=== PATIENT | male | born 1935 | race Caucasian/White ===

== ENCOUNTER 2018-06-01 22:24 | Inpatient (IN) | payer MEDICARE, OTHER, MEDICAID ==
[2018-06-01 22:51] LABS: ADD MAN DIFF? NO
[2018-06-01 22:53] LABS: BASOPHIL # 0.1 10^3/ul (0.0-0.1); BASOPHILS % 0.6 % (0.0-2.0); EOSINOPHILS # 0.6 10^3/ul (0.0-0.5); EOSINOPHILS % 4.2 % (0.0-7.0); HEMATOCRIT 33.8 % (42.0-52.0); HEMOGLOBIN 10.4 g/dl (14.0-18.0); LYMPHOCYTES # 4.3 10^3/ul (0.8-2.9); LYMPHOCYTES % 31.3 % (15.0-51.0); MEAN CORPUSCULAR HEMOGLOBIN 27.2 pg (29.0-33.0); MEAN CORPUSCULAR HGB CONC 30.8 g/dl (32.0-37.0); MEAN CORPUSCULAR VOLUME 88.5 fl (82.0-101.0); MEAN PLATELET VOLUME 10.3 fl (7.4-10.4); MONOCYTE # 0.9 10^3/ul (0.3-0.9); MONOCYTES % 6.2 % (0.0-11.0); NEUTROPHIL # 7.6 10^3/ul (1.6-7.5); NEUTROPHILS % 55.1 % (39.0-77.0); PLATELET COUNT 353 10^3/UL (140-415); RED BLOOD COUNT 3.82 10^6/ul (4.70-6.10); RED CELL DISTRIBUTION WIDTH 14.3 % (11.5-14.5)
[2018-06-01 22:53] LABS: WHITE BLOOD COUNT 13.7 10^3/ul (4.8-10.8)
[2018-06-01 23:17] LABS: ANION GAP 17 (8-16); BLOOD UREA NITROGEN 74 mg/dl (7-20); CALCIUM 9.4 mg/dl (8.4-10.2); CARBON DIOXIDE 20 mmol/L (21-31); CHLORIDE 108 mmol/L (97-110); GLUCOSE 150 mg/dl (70-220); POTASSIUM 5.3 mmol/L (3.5-5.1); SODIUM 140 mmol/L (135-144)
[2018-06-01 23:29] LABS: B-TYPE NATRIURETIC PEPTIDE 4110 PG/ML (0-450); TROPONIN-I < 0.010 ng/ml (0.000-0.120)
[2018-06-01] MEDS: ASPIRIN 81 MG TAB PO (23:50)
[2018-06-02] MEDS: FUROSEMIDE 40 MG INJ IV ×2 (02:00→09:04)
[2018-06-02 03:32] LABS: ADD UMIC YES; UR ASCORBIC ACID NEGATIVE (NEGATIVE); UR BACTERIA MODERATE /HPF (NONE SEEN); UR BILIRUBIN (Dip) NEGATIVE (NEGATIVE); UR BLOOD (Dip) 2+ mg/dL (NEGATIVE); UR CLARITY CLOUDY (CLEAR); UR COLOR YELLOW (YELLOW); UR GLUCOSE (Dip) NEGATIVE (NEGATIVE); UR KETONES (Dip) NEGATIVE (NEGATIVE); UR LEUKOCYTE ESTERASE (Dip) 3+ Leu/ul (NEGATIVE); UR NITRITE (Dip) NEGATIVE (NEGATIVE); UR RBC 16 /HPF (0-5); UR SPECIFIC GRAVITY (Dip) 1.012 (1.003-1.030); UR SQUAMOUS EPITHELIAL CELL FEW /HPF (FEW); UR TOTAL PROTEIN (Dip) 2+ mg/dl (NEGATIVE); UR URIC ACID CRYSTAL FEW /HPF (NONE SEEN); UR UROBILINOGEN (Dip) NEGATIVE (NEGATIVE); UR WBC 107 /HPF (0-5)
[2018-06-02] MEDS ORDERED: morphine 2 MG INJ IV (04:00)
[2018-06-02] MEDS ORDERED: NACL 0.9% 3 ML SYG IV (04:00)
[2018-06-02] MEDS: FAMOTIDINE 20 MG INJ IV (09:04)
[2018-06-02] MEDS: ENOXAPARIN 30 MG/0.3 ML SYG SC (09:11)
[2018-06-02 10:10] LABS: CREATINE KINASE 72 IU/L (23-200)
[2018-06-02 10:23] LABS: CK INDEX 3.8; CK-MB 2.71 ng/ml (0.0-2.4)
[2018-06-02] MEDS ORDERED: ACETAMINOPHEN 325 MG TAB PO (12:30)
[2018-06-02] MEDS ORDERED: NITROGLYCERIN (SL) 0.4 MG TAB SL (12:30)
[2018-06-02] MEDS ORDERED: ALBUTEROL 0.083% (NEB) 2.5 MG/3 ML AMP NEB (12:30)
[2018-06-02] MEDS ORDERED: GLUCOSE GEL 15 GRAM TUBE PO ×2 (13:00)
[2018-06-02] MEDS ORDERED: GLUCOSE GEL 15 GRAM TUBE BUCCAL (13:00)
[2018-06-02] MEDS ORDERED: GLUCAGON 1 MG INJ IM (13:00)
[2018-06-02] MEDS ORDERED: DEXTROSE 50% 50 ML SYRINGE IV ×2 (13:00)
[2018-06-02] MEDS: MULTIVIT/CA CARB/B CMPLX/FA TAB PO (14:23)
[2018-06-02] MEDS: SOD CHLORIDE 0.45% 1,000 ML IV (14:23)
[2018-06-02] MEDS: NA POLYST SULFON 15 GM/60 ML BTL PO (14:24)
[2018-06-02] MEDS: ASPIRIN (EC) 325 MG TAB PO (14:24)
[2018-06-02] MEDS: BISACODYL 10 MG SUPP PR (14:25)
[2018-06-02] MEDS: CEFTRIAXONE 1 GM/50 ML (PMX) 50 ML IVPB (14:25)
[2018-06-02] MEDS: METOPROLOL 25 MG TAB PO ×2 (14:25→20:40)
[2018-06-02 15:28] LABS: CREATINE KINASE 52 IU/L (23-200)
[2018-06-02 15:36] LABS: CK INDEX 4.6; CK-MB 2.39 ng/ml (0.0-2.4)
[2018-06-02 15:38] LABS: TROPONIN-I 0.914 ng/ml (0.000-0.120)
[2018-06-02] MEDS ORDERED: PENDING SANTYL ORDER FOR WOUND CARE XX (16:00)
[2018-06-02] MEDS: INSULIN ASPART [NOVOLOG] 3 ML PEN SC ×2 (17:41→20:40)
[2018-06-02] MEDS: PROMETHAZINE/DM (CUP) PO (20:39)
[2018-06-02] MEDS: DOCUSATE SODIUM 100 MG CAP PO (20:39)
[2018-06-02] MEDS: TAMSULOSIN (SR) 0.4 MG CAP PO (20:39)
[2018-06-02] MEDS: ATORVASTATIN 40 MG TAB PO (20:40)
[2018-06-02] MEDS: FERROUS SULFATE (EC) 325 MG TAB PO (20:40)
[2018-06-03] MEDS: PROMETHAZINE/DM (CUP) PO ×2 (02:18→21:12)
[2018-06-03] MEDS: PANTOPRAZOLE (EC) 40 MG TAB PO (05:44)
[2018-06-03] MEDS: ACETAMINOPHEN 325 MG TAB PO ×2 (05:45→21:12)
[2018-06-03] MEDS: INSULIN ASPART [NOVOLOG] 3 ML PEN SC ×4 (08:00→21:00)
[2018-06-03] MEDS: ENOXAPARIN 30 MG/0.3 ML SYG SC (08:16)
[2018-06-03] MEDS: FUROSEMIDE 40 MG INJ IV (08:16)
[2018-06-03] MEDS: CLOPIDOGREL 75 MG TAB PO (08:17)
[2018-06-03] MEDS: DOCUSATE SODIUM 100 MG CAP PO ×2 (08:17→21:13)
[2018-06-03] MEDS: ASPIRIN (EC) 81 MG TAB PO (08:17)
[2018-06-03] MEDS: FERROUS SULFATE (EC) 325 MG TAB PO ×2 (08:17→21:14)
[2018-06-03] MEDS: ISOSORBIDE MONONITRATE(SR)30 MG TAB PO (08:17)
[2018-06-03] MEDS: FAMOTIDINE 20 MG INJ IV (08:18)
[2018-06-03] MEDS: LINAGLIPTIN 5 MG TABLET PO (08:18)
[2018-06-03 08:44] LABS: ADD MAN DIFF? NO
[2018-06-03 08:59] LABS: BASOPHIL # 0.1 10^3/ul (0.0-0.1); BASOPHILS % 0.6 % (0.0-2.0); EOSINOPHILS # 0.7 10^3/ul (0.0-0.5); HEMATOCRIT 30.7 % (42.0-52.0); HEMOGLOBIN 9.3 g/dl (14.0-18.0); LYMPHOCYTES # 3.1 10^3/ul (0.8-2.9); LYMPHOCYTES % 21.3 % (15.0-51.0); MEAN CORPUSCULAR HEMOGLOBIN 26.8 pg (29.0-33.0); MEAN CORPUSCULAR HGB CONC 30.3 g/dl (32.0-37.0); MEAN CORPUSCULAR VOLUME 88.5 fl (82.0-101.0); MEAN PLATELET VOLUME 10.4 fl (7.4-10.4); MONOCYTE # 0.9 10^3/ul (0.3-0.9); MONOCYTES % 6.4 % (0.0-11.0); NEUTROPHIL # 9.4 10^3/ul (1.6-7.5); NEUTROPHILS % 65.2 % (39.0-77.0); PLATELET COUNT 331 10^3/UL (140-415); RED BLOOD COUNT 3.47 10^6/ul (4.70-6.10); RED CELL DISTRIBUTION WIDTH 14.5 % (11.5-14.5)
[2018-06-03 08:59] LABS: WHITE BLOOD COUNT 14.5 10^3/ul (4.8-10.8)
[2018-06-03 09:17] LABS: CHOLESTEROL 135 mg/dl (100-200)
[2018-06-03 09:17] LABS: CHOL/HDL RATIO 5.6 RATIO; HDL CHOLESTEROL 24 mg/dl (31-75); LDL CHOLESTEROL,CALCULATED 82 mg/dl; TRIGLYCERIDES 146 mg/dl (0-149)
[2018-06-03] MEDS: POLYETHYLENE GLYCOL 17 GM PACKET PO (09:29)
[2018-06-03] MEDS: METOPROLOL 25 MG TAB PO ×2 (09:29→21:13)
[2018-06-03 09:33] LABS: FREE T4 (FREE THYROXINE) 1.48 ng/dl (0.85-1.93)
[2018-06-03 09:34] LABS: ALANINE AMINOTRANSFERASE 43 IU/L (13-69); ALBUMIN 3.2 g/dl (3.3-4.9); ALBUMIN/GLOBULIN RATIO 0.78; ALKALINE PHOSPHATASE 134 IU/L (42-121); ANION GAP 16 (8-16); ASPARTATE AMINO TRANSFERASE 33 IU/L (15-46); BILIRUBIN,INDIRECT 0.1 mg/dl (0-1.1); BILIRUBIN,TOTAL 0.1 mg/dl (0.2-1.3); BLOOD UREA NITROGEN 74 mg/dl (7-20); CALCIUM 8.6 mg/dl (8.4-10.2); CARBON DIOXIDE 22 mmol/L (21-31); CHLORIDE 107 mmol/L (97-110); CREATININE 2.82 mg/dl (0.61-1.24); GLUCOSE 126 mg/dl (70-220); POTASSIUM 5.1 mmol/L (3.5-5.1); SODIUM 140 mmol/L (135-144); TOTAL PROTEIN 7.3 g/dl (6.1-8.1)
[2018-06-03 09:35] LABS: URIC ACID 10.5 mg/dl (3.1-7.9)
[2018-06-03 09:35] LABS: CREATINE KINASE 32 IU/L (23-200)
[2018-06-03 09:37] LABS: B-TYPE NATRIURETIC PEPTIDE 5790 PG/ML (0-450)
[2018-06-03 09:39] LABS: CK INDEX 2.9; CK-MB 0.92 ng/ml (0.0-2.4)
[2018-06-03 09:42] LABS: TROPONIN-I 0.324 ng/ml (0.000-0.120)
[2018-06-03 09:42] LABS: HEMOGLOBIN A1C 6.6 % (0-5.9)
[2018-06-03] MEDS: BISACODYL 10 MG SUPP PR (12:30)
[2018-06-03] MEDS: SOD CHLORIDE 0.45% 1,000 ML IV (12:39)
[2018-06-03] MEDS: CEFTRIAXONE 1 GM/50 ML (PMX) 50 ML IVPB (14:16)
[2018-06-03] MEDS: LEVOFLOXACIN 500MG/D5W (PMX) 100 ML IVPB (18:23)
[2018-06-03 19:59] LABS: SODIUM,URINE RANDOM 68 mmol/L (30-90)
[2018-06-03 20:00] LABS: PROTEIN/CREAT RATIO 2.36 RATIO
[2018-06-03] MEDS: TAMSULOSIN (SR) 0.4 MG CAP PO (21:13)
[2018-06-03] MEDS: ATORVASTATIN 40 MG TAB PO (21:13)
[2018-06-03] MEDS: NYSTATIN 30 GM POWDER BTL TOP (21:21)
[2018-06-04] MEDS: PANTOPRAZOLE (EC) 40 MG TAB PO (06:40)
[2018-06-04 07:46] LABS: ADD MAN DIFF? NO
[2018-06-04 07:51] LABS: WHITE BLOOD COUNT 10.6 10^3/ul (4.8-10.8)
[2018-06-04 07:51] LABS: BASOPHIL # 0.1 10^3/ul (0.0-0.1); BASOPHILS % 0.5 % (0.0-2.0); EOSINOPHILS # 0.5 10^3/ul (0.0-0.5); EOSINOPHILS % 5.1 % (0.0-7.0); HEMATOCRIT 29.6 % (42.0-52.0); LYMPHOCYTES # 2.6 10^3/ul (0.8-2.9); LYMPHOCYTES % 24.2 % (15.0-51.0); MEAN CORPUSCULAR HGB CONC 30.4 g/dl (32.0-37.0); MEAN CORPUSCULAR VOLUME 88.9 fl (82.0-101.0); MEAN PLATELET VOLUME 10.3 fl (7.4-10.4); MONOCYTE # 0.9 10^3/ul (0.3-0.9); MONOCYTES % 8.1 % (0.0-11.0); NEUTROPHIL # 6.5 10^3/ul (1.6-7.5); NEUTROPHILS % 60.9 % (39.0-77.0); PLATELET COUNT 316 10^3/UL (140-415); RED BLOOD COUNT 3.33 10^6/ul (4.70-6.10); RED CELL DISTRIBUTION WIDTH 14.5 % (11.5-14.5)
[2018-06-04] MEDS: INSULIN ASPART [NOVOLOG] 3 ML PEN SC ×4 (08:00→20:26)
[2018-06-04 08:12] LABS: ANION GAP 13 (8-16); BLOOD UREA NITROGEN 72 mg/dl (7-20); CALCIUM 8.9 mg/dl (8.4-10.2); CARBON DIOXIDE 24 mmol/L (21-31); CHLORIDE 107 mmol/L (97-110); CREATININE 2.72 mg/dl (0.61-1.24); GLUCOSE 126 mg/dl (70-220); POTASSIUM 4.8 mmol/L (3.5-5.1); SODIUM 139 mmol/L (135-144)
[2018-06-04] MEDS: FUROSEMIDE 40 MG INJ IV (08:44)
[2018-06-04] MEDS: DOCUSATE SODIUM 100 MG CAP PO ×2 (08:44→20:25)
[2018-06-04] MEDS: FERROUS SULFATE (EC) 325 MG TAB PO ×2 (08:44→20:25)
[2018-06-04] MEDS: ASPIRIN (EC) 81 MG TAB PO (08:44)
[2018-06-04] MEDS: ISOSORBIDE MONONITRATE(SR)30 MG TAB PO (08:44)
[2018-06-04] MEDS: FAMOTIDINE 20 MG INJ IV (08:44)
[2018-06-04] MEDS: LINAGLIPTIN 5 MG TABLET PO (08:45)
[2018-06-04] MEDS: POLYETHYLENE GLYCOL 17 GM PACKET PO (08:45)
[2018-06-04] MEDS: METOPROLOL 25 MG TAB PO ×2 (08:45→20:26)
[2018-06-04] MEDS: CLOPIDOGREL 75 MG TAB PO (08:45)
[2018-06-04] MEDS: NYSTATIN 30 GM POWDER BTL TOP ×2 (08:49→20:27)
[2018-06-04] MEDS: ENOXAPARIN 30 MG/0.3 ML SYG SC (08:49)
[2018-06-04] MEDS: ACETAMINOPHEN 325 MG TAB PO (10:20)
[2018-06-04] MEDS: SOD CHLORIDE 0.45% 1,000 ML IV (12:12)
[2018-06-04] MEDS: BISACODYL 10 MG SUPP PR (12:30)
[2018-06-04] MEDS: HYDROCODONE/APAP (5/325) TAB PO ×2 (13:05→21:23)
[2018-06-04] MEDS: CEFTRIAXONE 1 GM/50 ML (PMX) 50 ML IVPB (13:05)
[2018-06-04] MEDS: TAMSULOSIN (SR) 0.4 MG CAP PO (20:25)
[2018-06-04] MEDS: PROMETHAZINE/DM (CUP) PO (20:25)
[2018-06-04] MEDS: ATORVASTATIN 40 MG TAB PO (20:25)
[2018-06-05] MEDS: PANTOPRAZOLE (EC) 40 MG TAB PO (05:59)
[2018-06-05 06:30] LABS: ADD MAN DIFF? NO
[2018-06-05 06:32] LABS: WHITE BLOOD COUNT 11.8 10^3/ul (4.8-10.8)
[2018-06-05 06:32] LABS: BASOPHILS % 0.3 % (0.0-2.0); EOSINOPHILS # 0.5 10^3/ul (0.0-0.5); EOSINOPHILS % 3.8 % (0.0-7.0); HEMATOCRIT 31.6 % (42.0-52.0); HEMOGLOBIN 9.7 g/dl (14.0-18.0); LYMPHOCYTES # 3.1 10^3/ul (0.8-2.9); LYMPHOCYTES % 26.5 % (15.0-51.0); MEAN CORPUSCULAR HEMOGLOBIN 27.4 pg (29.0-33.0); MEAN CORPUSCULAR HGB CONC 30.7 g/dl (32.0-37.0); MEAN CORPUSCULAR VOLUME 89.3 fl (82.0-101.0); MEAN PLATELET VOLUME 10.2 fl (7.4-10.4); MONOCYTE # 0.9 10^3/ul (0.3-0.9); MONOCYTES % 7.7 % (0.0-11.0); NEUTROPHIL # 7.1 10^3/ul (1.6-7.5); NEUTROPHILS % 60.8 % (39.0-77.0); PLATELET COUNT 341 10^3/UL (140-415); RED BLOOD COUNT 3.54 10^6/ul (4.70-6.10); RED CELL DISTRIBUTION WIDTH 14.6 % (11.5-14.5)
[2018-06-05 06:59] LABS: ANION GAP 15 (8-16); BLOOD UREA NITROGEN 71 mg/dl (7-20); CALCIUM 9.1 mg/dl (8.4-10.2); CARBON DIOXIDE 24 mmol/L (21-31); CHLORIDE 110 mmol/L (97-110); CREATININE 2.92 mg/dl (0.61-1.24); GLUCOSE 130 mg/dl (70-220); POTASSIUM 5.5 mmol/L (3.5-5.1); SODIUM 143 mmol/L (135-144)
[2018-06-05] MEDS: INSULIN ASPART [NOVOLOG] 3 ML PEN SC ×4 (08:00→20:36)
[2018-06-05] MEDS: FAMOTIDINE 20 MG INJ IV (08:37)
[2018-06-05] MEDS: FUROSEMIDE 40 MG INJ IV (08:37)
[2018-06-05] MEDS: ISOSORBIDE MONONITRATE(SR)30 MG TAB PO (08:38)
[2018-06-05] MEDS: ASPIRIN (EC) 81 MG TAB PO (08:38)
[2018-06-05] MEDS: FERROUS SULFATE (EC) 325 MG TAB PO ×2 (08:38→20:25)
[2018-06-05] MEDS: CLOPIDOGREL 75 MG TAB PO (08:38)
[2018-06-05] MEDS: DOCUSATE SODIUM 100 MG CAP PO ×2 (08:38→20:25)
[2018-06-05] MEDS: POLYETHYLENE GLYCOL 17 GM PACKET PO (08:39)
[2018-06-05] MEDS: LINAGLIPTIN 5 MG TABLET PO (08:39)
[2018-06-05] MEDS: METOPROLOL 25 MG TAB PO ×2 (08:39→20:27)
[2018-06-05] MEDS: ENOXAPARIN 30 MG/0.3 ML SYG SC (08:51)
[2018-06-05] MEDS: NYSTATIN 30 GM POWDER BTL TOP ×2 (08:53→20:36)
[2018-06-05] MEDS: PROMETHAZINE/DM (CUP) PO ×2 (10:20→20:25)
[2018-06-05] MEDS: BISACODYL 10 MG SUPP PR (12:30)
[2018-06-05] MEDS: SOD CHLORIDE 0.45% 1,000 ML IV (12:35)
[2018-06-05] MEDS: CEFTRIAXONE 1 GM/50 ML (PMX) 50 ML IVPB (13:35)
[2018-06-05] MEDS: NA POLYST SULFON 15 GM/60 ML BTL PO (13:35)
[2018-06-05] MEDS: predniSONE 20 MG TAB PO (14:37)
[2018-06-05] MEDS: ALBUMIN HUMAN 25% 100 ML IV (15:22)
[2018-06-05] MEDS: LEVOFLOXACIN 250 MG TAB PO (18:03)
[2018-06-05] MEDS: TAMSULOSIN (SR) 0.4 MG CAP PO (20:25)
[2018-06-05] MEDS: ATORVASTATIN 40 MG TAB PO (20:25)
[2018-06-05] MEDS: ZOLPIDEM 5 MG TAB PO (23:36)
[2018-06-05] MEDS: HYDROCODONE/APAP (5/325) TAB PO (23:36)
[2018-06-06] MEDS: LEVOFLOXACIN 250 MG TAB PO (05:19)
[2018-06-06] MEDS: PANTOPRAZOLE (EC) 40 MG TAB PO (05:19)
[2018-06-06 07:38] LABS: ADD MAN DIFF? NO
[2018-06-06 07:49] LABS: BASOPHILS % 0.3 % (0.0-2.0); EOSINOPHILS % 0.4 % (0.0-7.0); HEMATOCRIT 27.9 % (42.0-52.0); HEMOGLOBIN 8.5 g/dl (14.0-18.0); LYMPHOCYTES # 2.3 10^3/ul (0.8-2.9); LYMPHOCYTES % 23.1 % (15.0-51.0); MEAN CORPUSCULAR HEMOGLOBIN 27.2 pg (29.0-33.0); MEAN CORPUSCULAR HGB CONC 30.5 g/dl (32.0-37.0); MEAN CORPUSCULAR VOLUME 89.4 fl (82.0-101.0); MEAN PLATELET VOLUME 10.4 fl (7.4-10.4); MONOCYTE # 0.5 10^3/ul (0.3-0.9); MONOCYTES % 5.2 % (0.0-11.0); NEUTROPHILS % 70.1 % (39.0-77.0); PLATELET COUNT 311 10^3/UL (140-415); RED BLOOD COUNT 3.12 10^6/ul (4.70-6.10); RED CELL DISTRIBUTION WIDTH 14.6 % (11.5-14.5)
[2018-06-06] MEDS: INSULIN ASPART [NOVOLOG] 3 ML PEN SC ×4 (08:00→21:08)
[2018-06-06 08:13] LABS: ANION GAP 15 (8-16); BLOOD UREA NITROGEN 68 mg/dl (7-20); CALCIUM 8.8 mg/dl (8.4-10.2); CARBON DIOXIDE 25 mmol/L (21-31); CHLORIDE 107 mmol/L (97-110); CREATININE 2.82 mg/dl (0.61-1.24); GLUCOSE 133 mg/dl (70-220); POTASSIUM 5.5 mmol/L (3.5-5.1); SODIUM 141 mmol/L (135-144)
[2018-06-06] MEDS: POLYETHYLENE GLYCOL 17 GM PACKET PO (08:20)
[2018-06-06] MEDS: predniSONE 20 MG TAB PO (08:20)
[2018-06-06] MEDS: METOPROLOL 25 MG TAB PO ×2 (08:21→20:23)
[2018-06-06] MEDS: ISOSORBIDE MONONITRATE(SR)30 MG TAB PO (08:21)
[2018-06-06] MEDS: CLOPIDOGREL 75 MG TAB PO (08:21)
[2018-06-06] MEDS: DOCUSATE SODIUM 100 MG CAP PO ×2 (08:21→20:23)
[2018-06-06] MEDS: ERGOCALCIFEROL 50,000 UNIT CAP PO (08:21)
[2018-06-06] MEDS: LINAGLIPTIN 5 MG TABLET PO (08:21)
[2018-06-06] MEDS: ASPIRIN (EC) 81 MG TAB PO (08:21)
[2018-06-06] MEDS: FUROSEMIDE 20 MG INJ IV (08:22)
[2018-06-06] MEDS: FAMOTIDINE 20 MG INJ IV (08:24)
[2018-06-06] MEDS: ENOXAPARIN 30 MG/0.3 ML SYG SC (08:24)
[2018-06-06] MEDS: NYSTATIN 30 GM POWDER BTL TOP ×2 (08:25→21:10)
[2018-06-06] MEDS: FERROUS SULFATE (EC) 325 MG TAB PO ×2 (08:28→20:23)
[2018-06-06] MEDS: HYDROCODONE/APAP (5/325) TAB PO (09:42)
[2018-06-06] MEDS: SOD CHLORIDE 0.45% 1,000 ML IV (12:30)
[2018-06-06] MEDS: BISACODYL 10 MG SUPP PR (13:06)
[2018-06-06] MEDS: NA POLYST SULFON 15 GM/60 ML BTL PO (14:11)
[2018-06-06] MEDS: ATORVASTATIN 40 MG TAB PO (20:23)
[2018-06-06] MEDS: TAMSULOSIN (SR) 0.4 MG CAP PO (20:23)
[2018-06-06] MEDS: ONDANSETRON 4 MG INJ IV (21:55)
[2018-06-06] MEDS: ZOLPIDEM 5 MG TAB PO (21:56)
[2018-06-07] MEDS: PROMETHAZINE/DM (CUP) PO ×4 (03:56→22:15)
[2018-06-07] MEDS: SOD CHLORIDE 0.45% 1,000 ML IV (03:57)
[2018-06-07] MEDS: ONDANSETRON 4 MG INJ IV ×2 (04:56→16:02)
[2018-06-07] MEDS: PANTOPRAZOLE (EC) 40 MG TAB PO (05:07)
[2018-06-07] MEDS: LEVOFLOXACIN 250 MG TAB PO (05:10)
[2018-06-07] MEDS: ACETAMINOPHEN 325 MG TAB PO (05:15)
[2018-06-07 07:45] LABS: ADD MAN DIFF? NO
[2018-06-07 07:52] LABS: BASOPHIL # 0.1 10^3/ul (0.0-0.1); BASOPHILS % 0.5 % (0.0-2.0); EOSINOPHILS # 0.1 10^3/ul (0.0-0.5); EOSINOPHILS % 0.6 % (0.0-7.0); HEMATOCRIT 29.9 % (42.0-52.0); HEMOGLOBIN 9.4 g/dl (14.0-18.0); LYMPHOCYTES # 2.8 10^3/ul (0.8-2.9); LYMPHOCYTES % 20.9 % (15.0-51.0); MEAN CORPUSCULAR HGB CONC 31.4 g/dl (32.0-37.0); MEAN PLATELET VOLUME 10.3 fl (7.4-10.4); MONOCYTE # 0.8 10^3/ul (0.3-0.9); MONOCYTES % 6.3 % (0.0-11.0); NEUTROPHIL # 9.4 10^3/ul (1.6-7.5); NEUTROPHILS % 71.1 % (39.0-77.0); PLATELET COUNT 340 10^3/UL (140-415); RED BLOOD COUNT 3.36 10^6/ul (4.70-6.10); RED CELL DISTRIBUTION WIDTH 14.4 % (11.5-14.5)
[2018-06-07 07:52] LABS: WHITE BLOOD COUNT 13.2 10^3/ul (4.8-10.8)
[2018-06-07] MEDS: INSULIN ASPART [NOVOLOG] 3 ML PEN SC ×4 (07:57→20:25)
[2018-06-07] MEDS: FAMOTIDINE 20 MG INJ IV (08:19)
[2018-06-07] MEDS: FUROSEMIDE 20 MG INJ IV (08:21)
[2018-06-07] MEDS: POLYETHYLENE GLYCOL 17 GM PACKET PO (08:22)
[2018-06-07] MEDS: predniSONE 20 MG TAB PO (08:22)
[2018-06-07] MEDS: LINAGLIPTIN 5 MG TABLET PO (08:22)
[2018-06-07] MEDS: ISOSORBIDE MONONITRATE(SR)30 MG TAB PO (08:22)
[2018-06-07] MEDS: ASCORBIC ACID 500 MG TAB PO (08:23)
[2018-06-07] MEDS: FERROUS SULFATE (EC) 325 MG TAB PO ×2 (08:23→20:10)
[2018-06-07] MEDS: ASPIRIN (EC) 81 MG TAB PO (08:24)
[2018-06-07] MEDS: DOCUSATE SODIUM 100 MG CAP PO ×2 (08:24→20:10)
[2018-06-07] MEDS: MULTIVIT/CA CARB/B CMPLX/FA TAB PO (08:24)
[2018-06-07] MEDS: METOPROLOL 25 MG TAB PO ×2 (08:24→20:18)
[2018-06-07] MEDS: CLOPIDOGREL 75 MG TAB PO (08:24)
[2018-06-07] MEDS: ENOXAPARIN 30 MG/0.3 ML SYG SC (08:25)
[2018-06-07] MEDS: NYSTATIN 30 GM POWDER BTL TOP ×2 (08:25→20:29)
[2018-06-07 08:39] LABS: ANION GAP 18 (8-16); BLOOD UREA NITROGEN 64 mg/dl (7-20); CALCIUM 8.7 mg/dl (8.4-10.2); CARBON DIOXIDE 22 mmol/L (21-31); CHLORIDE 107 mmol/L (97-110); GLUCOSE 132 mg/dl (70-220); SODIUM 142 mmol/L (135-144)
[2018-06-07] MEDS: BISACODYL 10 MG SUPP PR (13:22)
[2018-06-07] MEDS: ATORVASTATIN 40 MG TAB PO (20:10)
[2018-06-07] MEDS: TAMSULOSIN (SR) 0.4 MG CAP PO (20:11)
[2018-06-08] MEDS: ZOLPIDEM 5 MG TAB PO (00:32)
[2018-06-08] MEDS: PANTOPRAZOLE (EC) 40 MG TAB PO (05:14)
[2018-06-08] MEDS: LEVOFLOXACIN 250 MG TAB PO (05:14)
[2018-06-08] MEDS: PROMETHAZINE/DM (CUP) PO ×3 (05:17→20:09)
[2018-06-08] MEDS: INSULIN ASPART [NOVOLOG] 3 ML PEN SC ×4 (08:00→20:18)
[2018-06-08] MEDS: ISOSORBIDE MONONITRATE(SR)30 MG TAB PO (08:17)
[2018-06-08] MEDS: MULTIVIT/CA CARB/B CMPLX/FA TAB PO (08:18)
[2018-06-08] MEDS: METOPROLOL 25 MG TAB PO ×2 (08:18→20:09)
[2018-06-08] MEDS: CLOPIDOGREL 75 MG TAB PO (08:18)
[2018-06-08] MEDS: LINAGLIPTIN 5 MG TABLET PO (08:18)
[2018-06-08] MEDS: FAMOTIDINE 20 MG INJ IV (08:18)
[2018-06-08] MEDS: DOCUSATE SODIUM 100 MG CAP PO ×2 (08:18→20:08)
[2018-06-08] MEDS: FERROUS SULFATE (EC) 325 MG TAB PO ×2 (08:18→20:08)
[2018-06-08] MEDS: predniSONE 20 MG TAB PO (08:18)
[2018-06-08] MEDS: ASPIRIN (EC) 81 MG TAB PO (08:18)
[2018-06-08] MEDS: POLYETHYLENE GLYCOL 17 GM PACKET PO ×2 (08:18→09:00)
[2018-06-08] MEDS: ASCORBIC ACID 500 MG TAB PO (08:18)
[2018-06-08] MEDS: FUROSEMIDE 20 MG INJ IV (08:18)
[2018-06-08] MEDS: NYSTATIN 30 GM POWDER BTL TOP ×2 (08:19→21:36)
[2018-06-08] MEDS: ENOXAPARIN 30 MG/0.3 ML SYG SC (08:51)
[2018-06-08] MEDS: BISACODYL 10 MG SUPP PR (11:46)
[2018-06-08 15:19] LABS: ANION GAP 14 (8-16); BLOOD UREA NITROGEN 76 mg/dl (7-20); CALCIUM 8.4 mg/dl (8.4-10.2); CARBON DIOXIDE 23 mmol/L (21-31); CHLORIDE 109 mmol/L (97-110); CREATININE 2.71 mg/dl (0.61-1.24); GLUCOSE 258 mg/dl (70-220); POTASSIUM 5.1 mmol/L (3.5-5.1); SODIUM 141 mmol/L (135-144)
[2018-06-08] MEDS: HYDROCODONE/APAP (5/325) TAB PO (16:19)
[2018-06-08] MEDS: TAMSULOSIN (SR) 0.4 MG CAP PO (20:08)
[2018-06-08] MEDS: ATORVASTATIN 40 MG TAB PO (20:09)
[2018-06-09] MEDS: PANTOPRAZOLE (EC) 40 MG TAB PO (06:14)
[2018-06-09] MEDS: LEVOFLOXACIN 250 MG TAB PO (06:14)
[2018-06-09 08:05] LABS: ADD MAN DIFF? NO
[2018-06-09 08:11] LABS: WHITE BLOOD COUNT 13.8 10^3/ul (4.8-10.8)
[2018-06-09 08:11] LABS: BASOPHILS % 0.1 % (0.0-2.0); EOSINOPHILS % 0.2 % (0.0-7.0); HEMATOCRIT 31.3 % (42.0-52.0); HEMOGLOBIN 9.3 g/dl (14.0-18.0); LYMPHOCYTES # 3.4 10^3/ul (0.8-2.9); LYMPHOCYTES % 24.5 % (15.0-51.0); MEAN CORPUSCULAR HEMOGLOBIN 26.8 pg (29.0-33.0); MEAN CORPUSCULAR HGB CONC 29.7 g/dl (32.0-37.0); MEAN CORPUSCULAR VOLUME 90.2 fl (82.0-101.0); MEAN PLATELET VOLUME 10.7 fl (7.4-10.4); MONOCYTE # 1.2 10^3/ul (0.3-0.9); MONOCYTES % 8.6 % (0.0-11.0); NEUTROPHIL # 9.1 10^3/ul (1.6-7.5); NEUTROPHILS % 65.7 % (39.0-77.0); PLATELET COUNT 328 10^3/UL (140-415); RED BLOOD COUNT 3.47 10^6/ul (4.70-6.10); RED CELL DISTRIBUTION WIDTH 14.9 % (11.5-14.5)
[2018-06-09 08:33] LABS: ANION GAP 16 (8-16); BLOOD UREA NITROGEN 77 mg/dl (7-20); CALCIUM 8.5 mg/dl (8.4-10.2); CARBON DIOXIDE 23 mmol/L (21-31); CHLORIDE 109 mmol/L (97-110); CREATININE 2.63 mg/dl (0.61-1.24); GLUCOSE 141 mg/dl (70-220); POTASSIUM 4.7 mmol/L (3.5-5.1); SODIUM 143 mmol/L (135-144)
[2018-06-09] MEDS: NYSTATIN 30 GM POWDER BTL TOP ×2 (09:00→22:00)
[2018-06-09] MEDS: MULTIVIT/CA CARB/B CMPLX/FA TAB PO (10:27)
[2018-06-09] MEDS: DOCUSATE SODIUM 100 MG CAP PO ×2 (10:28→21:56)
[2018-06-09] MEDS: predniSONE 20 MG TAB PO (10:28)
[2018-06-09] MEDS: ASPIRIN (EC) 81 MG TAB PO (10:28)
[2018-06-09] MEDS: FAMOTIDINE 20 MG INJ IV (10:28)
[2018-06-09] MEDS: ASCORBIC ACID 500 MG TAB PO (10:28)
[2018-06-09] MEDS: LINAGLIPTIN 5 MG TABLET PO (10:28)
[2018-06-09] MEDS: CLOPIDOGREL 75 MG TAB PO (10:29)
[2018-06-09] MEDS: POLYETHYLENE GLYCOL 17 GM PACKET PO (10:29)
[2018-06-09] MEDS: FERROUS SULFATE (EC) 325 MG TAB PO ×2 (10:43→21:56)
[2018-06-09] MEDS: METOPROLOL 25 MG TAB PO ×2 (10:43→21:56)
[2018-06-09] MEDS: ISOSORBIDE MONONITRATE(SR)30 MG TAB PO (10:44)
[2018-06-09] MEDS: FUROSEMIDE 20 MG INJ IV (10:44)
[2018-06-09] MEDS: INSULIN ASPART [NOVOLOG] 3 ML PEN SC ×5 (11:11→22:33)
[2018-06-09] MEDS: ENOXAPARIN 30 MG/0.3 ML SYG SC (11:11)
[2018-06-09] MEDS: BISACODYL 10 MG SUPP PR ×2 (12:30→17:52)
[2018-06-09] MEDS: FLUCONAZOLE 100 MG TAB PO (14:15)
[2018-06-09] MEDS: TAMSULOSIN (SR) 0.4 MG CAP PO (21:56)
[2018-06-09] MEDS: ATORVASTATIN 40 MG TAB PO (21:56)
[2018-06-10] MEDS: ZOLPIDEM 5 MG TAB PO ×2 (01:41→23:25)
[2018-06-10] MEDS: LEVOFLOXACIN 250 MG TAB PO (06:29)
[2018-06-10] MEDS: PANTOPRAZOLE (EC) 40 MG TAB PO (06:29)
[2018-06-10] MEDS: INSULIN ASPART [NOVOLOG] 3 ML PEN SC ×4 (08:53→21:06)
[2018-06-10] MEDS: POLYETHYLENE GLYCOL 17 GM PACKET PO (08:55)
[2018-06-10] MEDS: ASCORBIC ACID 500 MG TAB PO (08:55)
[2018-06-10] MEDS: FUROSEMIDE 20 MG INJ IV (08:55)
[2018-06-10] MEDS: FAMOTIDINE 20 MG INJ IV (08:55)
[2018-06-10] MEDS: FERROUS SULFATE (EC) 325 MG TAB PO ×2 (08:55→20:50)
[2018-06-10] MEDS: DOCUSATE SODIUM 100 MG CAP PO ×2 (08:55→20:50)
[2018-06-10] MEDS: ENOXAPARIN 30 MG/0.3 ML SYG SC (08:55)
[2018-06-10] MEDS: CLOPIDOGREL 75 MG TAB PO (08:55)
[2018-06-10] MEDS: LINAGLIPTIN 5 MG TABLET PO (08:56)
[2018-06-10] MEDS: ASPIRIN (EC) 81 MG TAB PO (08:56)
[2018-06-10] MEDS: predniSONE 20 MG TAB PO (08:56)
[2018-06-10] MEDS: MULTIVIT/CA CARB/B CMPLX/FA TAB PO (08:56)
[2018-06-10] MEDS: METOPROLOL 25 MG TAB PO ×2 (08:56→20:51)
[2018-06-10] MEDS: FLUCONAZOLE 100 MG TAB PO (08:56)
[2018-06-10] MEDS: ISOSORBIDE MONONITRATE(SR)30 MG TAB PO (08:56)
[2018-06-10] MEDS: NYSTATIN 30 GM POWDER BTL TOP ×2 (08:58→20:52)
[2018-06-10] MEDS: PROMETHAZINE/DM (CUP) PO ×2 (12:31→23:33)
[2018-06-10] MEDS: TAMSULOSIN (SR) 0.4 MG CAP PO (20:50)
[2018-06-10] MEDS: ATORVASTATIN 40 MG TAB PO (20:50)
[2018-06-11] MEDS: ACETAMINOPHEN 325 MG TAB PO ×2 (03:47→15:56)
[2018-06-11] MEDS: PANTOPRAZOLE (EC) 40 MG TAB PO (05:51)
[2018-06-11] MEDS: LEVOFLOXACIN 250 MG TAB PO (05:52)
[2018-06-11] MEDS: INSULIN ASPART [NOVOLOG] 3 ML PEN SC ×5 (08:00→23:36)
[2018-06-11] MEDS: ENOXAPARIN 30 MG/0.3 ML SYG SC (08:32)
[2018-06-11] MEDS: POLYETHYLENE GLYCOL 17 GM PACKET PO (08:36)
[2018-06-11] MEDS: DOCUSATE SODIUM 100 MG CAP PO ×2 (08:38→21:35)
[2018-06-11] MEDS: FERROUS SULFATE (EC) 325 MG TAB PO ×2 (08:38→21:35)
[2018-06-11] MEDS: FLUCONAZOLE 100 MG TAB PO (08:38)
[2018-06-11] MEDS: MULTIVIT/CA CARB/B CMPLX/FA TAB PO (08:38)
[2018-06-11] MEDS: predniSONE 20 MG TAB PO (08:38)
[2018-06-11] MEDS: ISOSORBIDE MONONITRATE(SR)30 MG TAB PO (08:38)
[2018-06-11] MEDS: METOPROLOL 25 MG TAB PO ×2 (08:39→21:35)
[2018-06-11] MEDS: CLOPIDOGREL 75 MG TAB PO (08:39)
[2018-06-11] MEDS: FAMOTIDINE 20 MG INJ IV (08:39)
[2018-06-11] MEDS: ASPIRIN (EC) 81 MG TAB PO (08:39)
[2018-06-11] MEDS: ASCORBIC ACID 500 MG TAB PO (08:39)
[2018-06-11] MEDS: FUROSEMIDE 20 MG INJ IV (08:39)
[2018-06-11] MEDS: LINAGLIPTIN 5 MG TABLET PO (08:39)
[2018-06-11] MEDS: NYSTATIN 30 GM POWDER BTL TOP ×2 (08:40→21:19)
[2018-06-11] MEDS: BISACODYL 10 MG SUPP PR (11:42)
[2018-06-11 13:40] LABS: ADD MAN DIFF? NO
[2018-06-11 13:42] LABS: WHITE BLOOD COUNT 13.9 10^3/ul (4.8-10.8)
[2018-06-11 13:42] LABS: BASOPHIL # 0.1 10^3/ul (0.0-0.1); BASOPHILS % 0.4 % (0.0-2.0); EOSINOPHILS # 0.1 10^3/ul (0.0-0.5); EOSINOPHILS % 0.8 % (0.0-7.0); HEMATOCRIT 31.3 % (42.0-52.0); HEMOGLOBIN 9.9 g/dl (14.0-18.0); LYMPHOCYTES # 3.4 10^3/ul (0.8-2.9); LYMPHOCYTES % 24.4 % (15.0-51.0); MEAN CORPUSCULAR HEMOGLOBIN 28.2 pg (29.0-33.0); MEAN CORPUSCULAR HGB CONC 31.6 g/dl (32.0-37.0); MEAN CORPUSCULAR VOLUME 89.2 fl (82.0-101.0); MEAN PLATELET VOLUME 10.1 fl (7.4-10.4); MONOCYTE # 1.1 10^3/ul (0.3-0.9); MONOCYTES % 7.7 % (0.0-11.0); NEUTROPHIL # 9.1 10^3/ul (1.6-7.5); NEUTROPHILS % 65.8 % (39.0-77.0); PLATELET COUNT 327 10^3/UL (140-415); RED BLOOD COUNT 3.51 10^6/ul (4.70-6.10)
[2018-06-11 14:47] LABS: ANION GAP 14 (8-16); BLOOD UREA NITROGEN 90 mg/dl (7-20); CALCIUM 8.5 mg/dl (8.4-10.2); CARBON DIOXIDE 19 mmol/L (21-31); CHLORIDE 108 mmol/L (97-110); CREATININE 2.53 mg/dl (0.61-1.24); GLUCOSE 273 mg/dl (70-220); POTASSIUM 4.7 mmol/L (3.5-5.1); SODIUM 136 mmol/L (135-144)
[2018-06-11] MEDS: ATORVASTATIN 40 MG TAB PO (21:35)
[2018-06-11] MEDS: TAMSULOSIN (SR) 0.4 MG CAP PO (21:35)
[2018-06-11] MEDS: ZOLPIDEM 5 MG TAB PO (21:38)
[2018-06-11 23:18] LABS: GLUCOSE 457 mg/dl (70-220)
[2018-06-11] MEDS: PROMETHAZINE/DM (CUP) PO (23:55)
[2018-06-12] MEDS: PANTOPRAZOLE (EC) 40 MG TAB PO (05:38)
[2018-06-12 06:49] LABS: ADD MAN DIFF? NO
[2018-06-12 07:07] LABS: ANION GAP 12 (8-16); BLOOD UREA NITROGEN 94 mg/dl (7-20); CALCIUM 8.7 mg/dl (8.4-10.2); CARBON DIOXIDE 22 mmol/L (21-31); CHLORIDE 112 mmol/L (97-110); CREATININE 2.43 mg/dl (0.61-1.24); GLUCOSE 81 mg/dl (70-220); POTASSIUM 5.2 mmol/L (3.5-5.1); SODIUM 141 mmol/L (135-144)
[2018-06-12 07:08] LABS: BASOPHILS % 0.2 % (0.0-2.0); EOSINOPHILS % 0.2 % (0.0-7.0); HEMATOCRIT 30.5 % (42.0-52.0); HEMOGLOBIN 9.4 g/dl (14.0-18.0); LYMPHOCYTES # 3.5 10^3/ul (0.8-2.9); LYMPHOCYTES % 27.8 % (15.0-51.0); MEAN CORPUSCULAR HEMOGLOBIN 26.9 pg (29.0-33.0); MEAN CORPUSCULAR HGB CONC 30.8 g/dl (32.0-37.0); MEAN CORPUSCULAR VOLUME 87.4 fl (82.0-101.0); MEAN PLATELET VOLUME 10.5 fl (7.4-10.4); MONOCYTE # 1.1 10^3/ul (0.3-0.9); MONOCYTES % 8.7 % (0.0-11.0); NEUTROPHIL # 7.8 10^3/ul (1.6-7.5); NEUTROPHILS % 62.1 % (39.0-77.0); PLATELET COUNT 325 10^3/UL (140-415); RED BLOOD COUNT 3.49 10^6/ul (4.70-6.10); RED CELL DISTRIBUTION WIDTH 15.2 % (11.5-14.5)
[2018-06-12 07:08] LABS: WHITE BLOOD COUNT 12.6 10^3/ul (4.8-10.8)
[2018-06-12] MEDS: INSULIN ASPART [NOVOLOG] 3 ML PEN SC ×4 (08:00→22:10)
[2018-06-12] MEDS: FERROUS SULFATE (EC) 325 MG TAB PO ×2 (08:19→21:49)
[2018-06-12] MEDS: ASCORBIC ACID 500 MG TAB PO (08:19)
[2018-06-12] MEDS: FLUCONAZOLE 100 MG TAB PO (08:19)
[2018-06-12] MEDS: LINAGLIPTIN 5 MG TABLET PO (08:19)
[2018-06-12] MEDS: FAMOTIDINE 20 MG INJ IV (08:19)
[2018-06-12] MEDS: ISOSORBIDE MONONITRATE(SR)30 MG TAB PO (08:20)
[2018-06-12] MEDS: MULTIVIT/CA CARB/B CMPLX/FA TAB PO (08:20)
[2018-06-12] MEDS: predniSONE 20 MG TAB PO (08:20)
[2018-06-12] MEDS: ASPIRIN (EC) 81 MG TAB PO (08:21)
[2018-06-12] MEDS: CLOPIDOGREL 75 MG TAB PO (08:21)
[2018-06-12] MEDS: DOCUSATE SODIUM 100 MG CAP PO ×2 (08:21→21:00)
[2018-06-12] MEDS: METOPROLOL 25 MG TAB PO ×2 (08:21→21:52)
[2018-06-12] MEDS: ENOXAPARIN 30 MG/0.3 ML SYG SC (08:22)
[2018-06-12] MEDS: FUROSEMIDE 20 MG INJ IV (08:23)
[2018-06-12] MEDS: NYSTATIN 30 GM POWDER BTL TOP ×2 (08:23→21:53)
[2018-06-12] MEDS: POLYETHYLENE GLYCOL 17 GM PACKET PO (08:26)
[2018-06-12] MEDS: BISACODYL 10 MG SUPP PR (12:30)
[2018-06-12] MEDS: NA POLYST SULFON 15 GM/60 ML BTL PO ×2 (13:10→13:26)
[2018-06-12] MEDS: PROMETHAZINE/DM (CUP) PO ×2 (15:43→23:33)
[2018-06-12] MEDS: TAMSULOSIN (SR) 0.4 MG CAP PO (21:48)
[2018-06-12] MEDS: ATORVASTATIN 40 MG TAB PO (21:49)
[2018-06-12] MEDS: ZOLPIDEM 5 MG TAB PO (23:33)
[2018-06-12] MEDS: ACETAMINOPHEN 325 MG TAB PO (23:33)
[2018-06-13] MEDS: PANTOPRAZOLE (EC) 40 MG TAB PO (06:47)
[2018-06-13 07:29] LABS: ADD MAN DIFF? NO
[2018-06-13 07:35] LABS: WHITE BLOOD COUNT 13.4 10^3/ul (4.8-10.8)
[2018-06-13 07:35] LABS: BASOPHILS % 0.1 % (0.0-2.0); EOSINOPHILS % 0.3 % (0.0-7.0); HEMATOCRIT 28.7 % (42.0-52.0); HEMOGLOBIN 8.9 g/dl (14.0-18.0); LYMPHOCYTES # 3.3 10^3/ul (0.8-2.9); LYMPHOCYTES % 24.6 % (15.0-51.0); MEAN CORPUSCULAR HEMOGLOBIN 27.3 pg (29.0-33.0); MEAN PLATELET VOLUME 10.8 fl (7.4-10.4); MONOCYTE # 1.1 10^3/ul (0.3-0.9); MONOCYTES % 8.1 % (0.0-11.0); NEUTROPHIL # 8.8 10^3/ul (1.6-7.5); NEUTROPHILS % 65.9 % (39.0-77.0); PLATELET COUNT 288 10^3/UL (140-415); RED BLOOD COUNT 3.26 10^6/ul (4.70-6.10); RED CELL DISTRIBUTION WIDTH 15.8 % (11.5-14.5)
[2018-06-13 08:03] LABS: ANION GAP 14 (8-16); BLOOD UREA NITROGEN 91 mg/dl (7-20); CALCIUM 8.3 mg/dl (8.4-10.2); CARBON DIOXIDE 20 mmol/L (21-31); CHLORIDE 110 mmol/L (97-110); CREATININE 2.16 mg/dl (0.61-1.24); GLUCOSE 148 mg/dl (70-220); POTASSIUM 4.6 mmol/L (3.5-5.1); SODIUM 139 mmol/L (135-144)
[2018-06-13] MEDS: ASCORBIC ACID 500 MG TAB PO (08:37)
[2018-06-13] MEDS: FLUCONAZOLE 100 MG TAB PO (08:37)
[2018-06-13] MEDS: DOCUSATE SODIUM 100 MG CAP PO ×2 (08:37→20:28)
[2018-06-13] MEDS: FERROUS SULFATE (EC) 325 MG TAB PO ×2 (08:37→20:27)
[2018-06-13] MEDS: CLOPIDOGREL 75 MG TAB PO (08:38)
[2018-06-13] MEDS: FUROSEMIDE 20 MG INJ IV (08:38)
[2018-06-13] MEDS: METOPROLOL 25 MG TAB PO ×2 (08:38→20:28)
[2018-06-13] MEDS: FAMOTIDINE 20 MG INJ IV (08:38)
[2018-06-13] MEDS: MULTIVIT/CA CARB/B CMPLX/FA TAB PO (08:38)
[2018-06-13] MEDS: predniSONE 20 MG TAB PO (08:38)
[2018-06-13] MEDS: ASPIRIN (EC) 81 MG TAB PO (08:38)
[2018-06-13] MEDS: ISOSORBIDE MONONITRATE(SR)30 MG TAB PO (08:38)
[2018-06-13] MEDS: LINAGLIPTIN 5 MG TABLET PO (08:38)
[2018-06-13] MEDS: POLYETHYLENE GLYCOL 17 GM PACKET PO (08:53)
[2018-06-13] MEDS: ENOXAPARIN 30 MG/0.3 ML SYG SC (08:53)
[2018-06-13] MEDS: INSULIN ASPART [NOVOLOG] 3 ML PEN SC ×5 (08:53→20:37)
[2018-06-13] MEDS: NYSTATIN 30 GM POWDER BTL TOP ×2 (09:55→20:37)
[2018-06-13] MEDS: ERGOCALCIFEROL 50,000 UNIT CAP PO (12:31)
[2018-06-13] MEDS: BISACODYL 10 MG SUPP PR (14:18)
[2018-06-13] MEDS: PROMETHAZINE/DM (CUP) PO (15:39)
[2018-06-13] MEDS: ATORVASTATIN 40 MG TAB PO (20:27)
[2018-06-13] MEDS: TAMSULOSIN (SR) 0.4 MG CAP PO (20:28)
[2018-06-14] MEDS: ZOLPIDEM 5 MG TAB PO ×2 (00:51→23:57)
[2018-06-14] MEDS: PROMETHAZINE/DM (CUP) PO ×2 (00:51→22:54)
[2018-06-14] MEDS: PANTOPRAZOLE (EC) 40 MG TAB PO (05:36)
[2018-06-14 05:42] LABS: AADO2 Arterial 104.3 mmHg (7.0-24.0); Allen Test ACCEPTAB; Arterial Base Excess -3.8 mmol/L (-3.0-3); Arterial Blood Gas Oxygen Sat 90.2 mmHG (95.0-100.0); Arterial COHb 0.4 % (0.0-3.0); Arterial Fraction of Oxyhgb 89.7 % (93.0-99.0); Arterial HCO3 20.5 mmol/L (22.0-26.0); Arterial MetHb 0.2 % (0.0-1.5); Arterial Total Hemglobin 7.8 g/dl (12.0-18.0); Arterial pCO2 33.6 mmhg (35-45); MODE NASAL CANNULA; Site Right Radial
[2018-06-14] MEDS: ASCORBIC ACID 500 MG TAB PO (08:24)
[2018-06-14] MEDS: INSULIN ASPART [NOVOLOG] 3 ML PEN SC ×4 (08:24→21:20)
[2018-06-14] MEDS: MULTIVIT/CA CARB/B CMPLX/FA TAB PO (08:25)
[2018-06-14] MEDS: predniSONE 20 MG TAB PO (08:25)
[2018-06-14] MEDS: METOPROLOL 25 MG TAB PO ×2 (08:25→21:18)
[2018-06-14] MEDS: LINAGLIPTIN 5 MG TABLET PO (08:25)
[2018-06-14] MEDS: ASPIRIN (EC) 81 MG TAB PO (08:25)
[2018-06-14] MEDS: POLYETHYLENE GLYCOL 17 GM PACKET PO (08:26)
[2018-06-14] MEDS: ISOSORBIDE MONONITRATE(SR)30 MG TAB PO (08:26)
[2018-06-14] MEDS: DOCUSATE SODIUM 100 MG CAP PO ×2 (08:26→21:17)
[2018-06-14] MEDS: FERROUS SULFATE (EC) 325 MG TAB PO ×2 (08:26→21:17)
[2018-06-14] MEDS: CLOPIDOGREL 75 MG TAB PO (08:26)
[2018-06-14] MEDS: FAMOTIDINE 20 MG INJ IV (08:26)
[2018-06-14] MEDS: NYSTATIN 30 GM POWDER BTL TOP ×2 (08:27→21:20)
[2018-06-14] MEDS: ENOXAPARIN 30 MG/0.3 ML SYG SC (08:38)
[2018-06-14 08:47] LABS: ADD MAN DIFF? NO
[2018-06-14 08:53] LABS: BASOPHILS % 0.1 % (0.0-2.0); EOSINOPHILS # 0.1 10^3/ul (0.0-0.5); EOSINOPHILS % 0.5 % (0.0-7.0); HEMATOCRIT 28.3 % (42.0-52.0); HEMOGLOBIN 8.7 g/dl (14.0-18.0); LYMPHOCYTES # 3.3 10^3/ul (0.8-2.9); LYMPHOCYTES % 29.2 % (15.0-51.0); MEAN CORPUSCULAR HEMOGLOBIN 27.4 pg (29.0-33.0); MEAN CORPUSCULAR HGB CONC 30.7 g/dl (32.0-37.0); MEAN CORPUSCULAR VOLUME 89.3 fl (82.0-101.0); MEAN PLATELET VOLUME 10.6 fl (7.4-10.4); MONOCYTES % 8.6 % (0.0-11.0); NEUTROPHIL # 6.9 10^3/ul (1.6-7.5); NEUTROPHILS % 60.8 % (39.0-77.0); PLATELET COUNT 258 10^3/UL (140-415); RED BLOOD COUNT 3.17 10^6/ul (4.70-6.10); RED CELL DISTRIBUTION WIDTH 15.6 % (11.5-14.5)
[2018-06-14 08:53] LABS: WHITE BLOOD COUNT 11.3 10^3/ul (4.8-10.8)
[2018-06-14 09:12] LABS: URIC ACID 7.2 mg/dl (3.1-7.9)
[2018-06-14 09:13] LABS: PHOSPHORUS 4.8 mg/dl (2.5-4.9)
[2018-06-14 09:13] LABS: MAGNESIUM 2.1 mg/dl (1.7-2.5)
[2018-06-14 09:16] LABS: ALANINE AMINOTRANSFERASE 14 IU/L (13-69); ALBUMIN 2.8 g/dl (3.3-4.9); ALBUMIN/GLOBULIN RATIO 0.73; ALKALINE PHOSPHATASE 47 IU/L (42-121); ANION GAP 10 (8-16); ASPARTATE AMINO TRANSFERASE 14 IU/L (15-46); BILIRUBIN,INDIRECT 0.3 mg/dl (0-1.1); BILIRUBIN,TOTAL 0.3 mg/dl (0.2-1.3); BLOOD UREA NITROGEN 96 mg/dl (7-20); CALCIUM 8.4 mg/dl (8.4-10.2); CARBON DIOXIDE 21 mmol/L (21-31); CHLORIDE 111 mmol/L (97-110); CREATININE 2.03 mg/dl (0.61-1.24); GLUCOSE 137 mg/dl (70-220); POTASSIUM 4.4 mmol/L (3.5-5.1); SODIUM 138 mmol/L (135-144); TOTAL PROTEIN 6.6 g/dl (6.1-8.1)
[2018-06-14 09:22] LABS: B-TYPE NATRIURETIC PEPTIDE 4200 PG/ML (0-450)
[2018-06-14] MEDS: BISACODYL 10 MG SUPP PR (11:59)
[2018-06-14] MEDS: SOD CHLORIDE 0.9% 1,000 ML IV (12:17)
[2018-06-14] MEDS: ALBUMIN HUMAN 25% 100 ML IV ×2 (12:42→20:30)
[2018-06-14] MEDS: ATORVASTATIN 40 MG TAB PO (21:18)
[2018-06-14] MEDS: TAMSULOSIN (SR) 0.4 MG CAP PO (21:19)
[2018-06-15] MEDS: ALBUMIN HUMAN 25% 100 ML IV (04:30)
[2018-06-15] MEDS: PANTOPRAZOLE (EC) 40 MG TAB PO (06:42)
[2018-06-15] MEDS: SOD CHLORIDE 0.9% 1,000 ML IV (08:00)
[2018-06-15] MEDS: INSULIN ASPART [NOVOLOG] 3 ML PEN SC ×4 (08:00→21:52)
[2018-06-15] MEDS: FAMOTIDINE 20 MG INJ IV (08:18)
[2018-06-15] MEDS: POLYETHYLENE GLYCOL 17 GM PACKET PO (08:18)
[2018-06-15] MEDS: MULTIVIT/CA CARB/B CMPLX/FA TAB PO (08:18)
[2018-06-15] MEDS: predniSONE 20 MG TAB PO (08:19)
[2018-06-15] MEDS: ASCORBIC ACID 500 MG TAB PO (08:19)
[2018-06-15] MEDS: CLOPIDOGREL 75 MG TAB PO (08:19)
[2018-06-15] MEDS: ASPIRIN (EC) 81 MG TAB PO (08:19)
[2018-06-15] MEDS: FERROUS SULFATE (EC) 325 MG TAB PO ×2 (08:19→21:47)
[2018-06-15] MEDS: DOCUSATE SODIUM 100 MG CAP PO ×2 (08:19→21:00)
[2018-06-15] MEDS: LINAGLIPTIN 5 MG TABLET PO (08:19)
[2018-06-15] MEDS: NYSTATIN 30 GM POWDER BTL TOP ×2 (08:22→21:49)
[2018-06-15] MEDS: ENOXAPARIN 30 MG/0.3 ML SYG SC (08:22)
[2018-06-15] MEDS: ISOSORBIDE MONONITRATE(SR)30 MG TAB PO (08:30)
[2018-06-15] MEDS: METOPROLOL 25 MG TAB PO ×2 (08:31→21:48)
[2018-06-15] MEDS: BISACODYL 10 MG SUPP PR (12:08)
[2018-06-15] MEDS: PROMETHAZINE/DM (CUP) PO (13:50)
[2018-06-15] MEDS: HYDROCODONE/APAP (5/325) TAB PO ×2 (20:24→21:53)
[2018-06-15] MEDS: ATORVASTATIN 40 MG TAB PO (21:48)
[2018-06-15] MEDS: TAMSULOSIN (SR) 0.4 MG CAP PO (21:51)
[2018-06-16] MEDS: PROMETHAZINE/DM (CUP) PO ×2 (01:22→23:48)
[2018-06-16] MEDS: PANTOPRAZOLE (EC) 40 MG TAB PO (06:01)
[2018-06-16] MEDS: HYDROCODONE/APAP (5/325) TAB PO (06:01)
[2018-06-16] MEDS: INSULIN ASPART [NOVOLOG] 3 ML PEN SC ×4 (08:00→22:07)
[2018-06-16 08:06] LABS: ADD MAN DIFF? NO
[2018-06-16 08:08] LABS: WHITE BLOOD COUNT 10.7 10^3/ul (4.8-10.8)
[2018-06-16 08:08] LABS: BASOPHILS % 0.2 % (0.0-2.0); EOSINOPHILS # 0.1 10^3/ul (0.0-0.5); EOSINOPHILS % 0.8 % (0.0-7.0); HEMATOCRIT 28.8 % (42.0-52.0); HEMOGLOBIN 8.8 g/dl (14.0-18.0); LYMPHOCYTES # 3.1 10^3/ul (0.8-2.9); LYMPHOCYTES % 28.9 % (15.0-51.0); MEAN CORPUSCULAR HEMOGLOBIN 27.4 pg (29.0-33.0); MEAN CORPUSCULAR HGB CONC 30.6 g/dl (32.0-37.0); MEAN CORPUSCULAR VOLUME 89.7 fl (82.0-101.0); MEAN PLATELET VOLUME 11.2 fl (7.4-10.4); MONOCYTE # 0.9 10^3/ul (0.3-0.9); MONOCYTES % 8.6 % (0.0-11.0); NEUTROPHIL # 6.5 10^3/ul (1.6-7.5); NEUTROPHILS % 60.8 % (39.0-77.0); PLATELET COUNT 236 10^3/UL (140-415); RED BLOOD COUNT 3.21 10^6/ul (4.70-6.10); RED CELL DISTRIBUTION WIDTH 15.9 % (11.5-14.5)
[2018-06-16] MEDS: FAMOTIDINE 20 MG INJ IV (08:25)
[2018-06-16] MEDS: LINAGLIPTIN 5 MG TABLET PO (08:27)
[2018-06-16] MEDS: METOPROLOL 25 MG TAB PO ×2 (08:27→21:48)
[2018-06-16] MEDS: ENOXAPARIN 30 MG/0.3 ML SYG SC (08:27)
[2018-06-16] MEDS: CLOPIDOGREL 75 MG TAB PO (08:27)
[2018-06-16] MEDS: MULTIVIT/CA CARB/B CMPLX/FA TAB PO (08:27)
[2018-06-16] MEDS: ISOSORBIDE MONONITRATE(SR)30 MG TAB PO (08:27)
[2018-06-16] MEDS: ASCORBIC ACID 500 MG TAB PO (08:28)
[2018-06-16] MEDS: ASPIRIN (EC) 81 MG TAB PO (08:28)
[2018-06-16] MEDS: POLYETHYLENE GLYCOL 17 GM PACKET PO (08:28)
[2018-06-16] MEDS: NYSTATIN 30 GM POWDER BTL TOP ×2 (08:28→22:07)
[2018-06-16] MEDS: DOCUSATE SODIUM 100 MG CAP PO ×2 (08:28→21:48)
[2018-06-16] MEDS: FERROUS SULFATE (EC) 325 MG TAB PO ×2 (08:28→21:47)
[2018-06-16] MEDS: predniSONE 20 MG TAB PO (08:28)
[2018-06-16 08:29] LABS: ALANINE AMINOTRANSFERASE 18 IU/L (13-69); ALBUMIN/GLOBULIN RATIO 0.83; ALKALINE PHOSPHATASE 47 IU/L (42-121); ANION GAP 12 (8-16); ASPARTATE AMINO TRANSFERASE 18 IU/L (15-46); BILIRUBIN,INDIRECT 0.4 mg/dl (0-1.1); BILIRUBIN,TOTAL 0.4 mg/dl (0.2-1.3); BLOOD UREA NITROGEN 79 mg/dl (7-20); CALCIUM 8.3 mg/dl (8.4-10.2); CARBON DIOXIDE 19 mmol/L (21-31); CHLORIDE 113 mmol/L (97-110); CREATININE 1.76 mg/dl (0.61-1.24); GLUCOSE 118 mg/dl (70-220); POTASSIUM 4.6 mmol/L (3.5-5.1); SODIUM 139 mmol/L (135-144); TOTAL PROTEIN 6.6 g/dl (6.1-8.1)
[2018-06-16 08:33] LABS: MAGNESIUM 1.9 mg/dl (1.7-2.5)
[2018-06-16] MEDS: BISACODYL 10 MG SUPP PR (11:55)
[2018-06-16] MEDS: TAMSULOSIN (SR) 0.4 MG CAP PO (21:47)
[2018-06-16] MEDS: ATORVASTATIN 40 MG TAB PO (21:47)
[2018-06-16] MEDS: ZOLPIDEM 5 MG TAB PO (23:48)
[2018-06-16] MEDS: DOXAZOSIN 2 MG TAB PO (23:48)
[2018-06-17] MEDS: PANTOPRAZOLE (EC) 40 MG TAB PO (05:45)
[2018-06-17 07:52] LABS: ANION GAP 14 (8-16); BLOOD UREA NITROGEN 76 mg/dl (7-20); CALCIUM 8.2 mg/dl (8.4-10.2); CARBON DIOXIDE 17 mmol/L (21-31); CHLORIDE 113 mmol/L (97-110); CREATININE 1.98 mg/dl (0.61-1.24); GLUCOSE 124 mg/dl (70-220); POTASSIUM 4.8 mmol/L (3.5-5.1); SODIUM 139 mmol/L (135-144)
[2018-06-17 07:52] LABS: URIC ACID 7.1 mg/dl (3.1-7.9)
[2018-06-17 08:00] LABS: B-TYPE NATRIURETIC PEPTIDE 7780 PG/ML (0-450)
[2018-06-17] MEDS: INSULIN ASPART [NOVOLOG] 3 ML PEN SC ×4 (08:00→20:46)
[2018-06-17 08:07] LABS: MAGNESIUM 1.9 mg/dl (1.7-2.5)
[2018-06-17] MEDS: POLYETHYLENE GLYCOL 17 GM PACKET PO (08:37)
[2018-06-17] MEDS: ENOXAPARIN 30 MG/0.3 ML SYG SC (08:37)
[2018-06-17] MEDS: MULTIVIT/CA CARB/B CMPLX/FA TAB PO (08:37)
[2018-06-17] MEDS: FERROUS SULFATE (EC) 325 MG TAB PO ×2 (08:38→20:36)
[2018-06-17] MEDS: CLOPIDOGREL 75 MG TAB PO (08:38)
[2018-06-17] MEDS: DOCUSATE SODIUM 100 MG CAP PO ×2 (08:38→20:36)
[2018-06-17] MEDS: predniSONE 20 MG TAB PO (08:38)
[2018-06-17] MEDS: ASCORBIC ACID 500 MG TAB PO (08:38)
[2018-06-17] MEDS: ASPIRIN (EC) 81 MG TAB PO (08:38)
[2018-06-17] MEDS: LINAGLIPTIN 5 MG TABLET PO (08:38)
[2018-06-17] MEDS: METOPROLOL 25 MG TAB PO ×2 (08:39→20:37)
[2018-06-17] MEDS: ISOSORBIDE MONONITRATE(SR)30 MG TAB PO (08:39)
[2018-06-17] MEDS: NYSTATIN 30 GM POWDER BTL TOP ×2 (08:43→20:40)
[2018-06-17] MEDS: FAMOTIDINE 20 MG INJ IV (08:45)
[2018-06-17] MEDS: PROMETHAZINE/DM (CUP) PO (12:14)
[2018-06-17] MEDS: BISACODYL 10 MG SUPP PR (12:21)
[2018-06-17] MEDS: TAMSULOSIN (SR) 0.4 MG CAP PO (20:36)
[2018-06-17] MEDS: ATORVASTATIN 40 MG TAB PO (20:36)
[2018-06-17] MEDS: DOXAZOSIN 2 MG TAB PO (20:37)
[2018-06-17] MEDS: ZOLPIDEM 5 MG TAB PO (23:57)
[2018-06-18] MEDS: PANTOPRAZOLE (EC) 40 MG TAB PO (06:10)
[2018-06-18 08:03] LABS: ADD MAN DIFF? NO
[2018-06-18 08:05] LABS: WHITE BLOOD COUNT 10.3 10^3/ul (4.8-10.8)
[2018-06-18 08:05] LABS: BASOPHILS % 0.2 % (0.0-2.0); EOSINOPHILS # 0.2 10^3/ul (0.0-0.5); EOSINOPHILS % 2.1 % (0.0-7.0); HEMATOCRIT 28.9 % (42.0-52.0); HEMOGLOBIN 8.9 g/dl (14.0-18.0); LYMPHOCYTES % 28.8 % (15.0-51.0); MEAN CORPUSCULAR HEMOGLOBIN 27.1 pg (29.0-33.0); MEAN CORPUSCULAR HGB CONC 30.8 g/dl (32.0-37.0); MEAN CORPUSCULAR VOLUME 88.1 fl (82.0-101.0); MEAN PLATELET VOLUME 11.9 fl (7.4-10.4); MONOCYTE # 0.8 10^3/ul (0.3-0.9); MONOCYTES % 8.2 % (0.0-11.0); NEUTROPHIL # 6.2 10^3/ul (1.6-7.5); NEUTROPHILS % 60.1 % (39.0-77.0); PLATELET COUNT 223 10^3/UL (140-415); RED BLOOD COUNT 3.28 10^6/ul (4.70-6.10); RED CELL DISTRIBUTION WIDTH 16.3 % (11.5-14.5)
[2018-06-18 08:28] LABS: ANION GAP 12 (8-16); BLOOD UREA NITROGEN 84 mg/dl (7-20); CALCIUM 8.4 mg/dl (8.4-10.2); CARBON DIOXIDE 19 mmol/L (21-31); CHLORIDE 111 mmol/L (97-110); GLUCOSE 121 mg/dl (70-220); SODIUM 137 mmol/L (135-144)
[2018-06-18] MEDS: POLYETHYLENE GLYCOL 17 GM PACKET PO (08:31)
[2018-06-18] MEDS: LINAGLIPTIN 5 MG TABLET PO (08:31)
[2018-06-18] MEDS: predniSONE 20 MG TAB PO (08:31)
[2018-06-18] MEDS: CLOPIDOGREL 75 MG TAB PO (08:31)
[2018-06-18] MEDS: FAMOTIDINE 20 MG INJ IV (08:31)
[2018-06-18] MEDS: METOPROLOL 25 MG TAB PO ×2 (08:31→20:59)
[2018-06-18] MEDS: FERROUS SULFATE (EC) 325 MG TAB PO ×2 (08:31→20:52)
[2018-06-18] MEDS: MULTIVIT/CA CARB/B CMPLX/FA TAB PO (08:31)
[2018-06-18] MEDS: ASCORBIC ACID 500 MG TAB PO (08:31)
[2018-06-18] MEDS: ENOXAPARIN 30 MG/0.3 ML SYG SC (08:32)
[2018-06-18] MEDS: ISOSORBIDE MONONITRATE(SR)30 MG TAB PO (08:32)
[2018-06-18] MEDS: DOCUSATE SODIUM 100 MG CAP PO ×2 (08:32→20:53)
[2018-06-18] MEDS: ASPIRIN (EC) 81 MG TAB PO (08:32)
[2018-06-18] MEDS: INSULIN ASPART [NOVOLOG] 3 ML PEN SC ×4 (08:33→21:06)
[2018-06-18] MEDS: NYSTATIN 30 GM POWDER BTL TOP ×2 (08:34→20:53)
[2018-06-18] MEDS: BISACODYL 10 MG SUPP PR (11:54)
[2018-06-18] MEDS: ALBUMIN HUMAN 25% 100 ML IV (14:56)
[2018-06-18] MEDS: FUROSEMIDE 20 MG INJ IV (16:48)
[2018-06-18] MEDS: ATORVASTATIN 40 MG TAB PO (20:52)
[2018-06-18] MEDS: BETHANECHOL 10 MG TAB PO (20:52)
[2018-06-18] MEDS: TAMSULOSIN (SR) 0.4 MG CAP PO (20:52)
[2018-06-18] MEDS: DOXAZOSIN 2 MG TAB PO (20:53)
[2018-06-19] MEDS: ZOLPIDEM 5 MG TAB PO (00:20)
[2018-06-19] MEDS: PANTOPRAZOLE (EC) 40 MG TAB PO (06:26)
[2018-06-19 07:40] LABS: ADD MAN DIFF? NO
[2018-06-19 07:41] LABS: WHITE BLOOD COUNT 9.3 10^3/ul (4.8-10.8)
[2018-06-19 07:41] LABS: BASOPHILS % 0.1 % (0.0-2.0); EOSINOPHILS # 0.3 10^3/ul (0.0-0.5); EOSINOPHILS % 3.1 % (0.0-7.0); HEMATOCRIT 27.9 % (42.0-52.0); HEMOGLOBIN 8.8 g/dl (14.0-18.0); LYMPHOCYTES # 2.8 10^3/ul (0.8-2.9); LYMPHOCYTES % 29.5 % (15.0-51.0); MEAN CORPUSCULAR HEMOGLOBIN 27.5 pg (29.0-33.0); MEAN CORPUSCULAR HGB CONC 31.5 g/dl (32.0-37.0); MEAN CORPUSCULAR VOLUME 87.2 fl (82.0-101.0); MEAN PLATELET VOLUME 11.5 fl (7.4-10.4); MONOCYTE # 0.9 10^3/ul (0.3-0.9); MONOCYTES % 9.1 % (0.0-11.0); NEUTROPHIL # 5.4 10^3/ul (1.6-7.5); NEUTROPHILS % 57.8 % (39.0-77.0); PLATELET COUNT 227 10^3/UL (140-415); RED CELL DISTRIBUTION WIDTH 16.2 % (11.5-14.5)
[2018-06-19] MEDS: INSULIN ASPART [NOVOLOG] 3 ML PEN SC ×4 (08:00→20:06)
[2018-06-19 08:18] LABS: ANION GAP 12 (8-16); BLOOD UREA NITROGEN 81 mg/dl (7-20); CALCIUM 8.6 mg/dl (8.4-10.2); CARBON DIOXIDE 19 mmol/L (21-31); CHLORIDE 114 mmol/L (97-110); CREATININE 2.05 mg/dl (0.61-1.24); GLUCOSE 124 mg/dl (70-220); POTASSIUM 4.9 mmol/L (3.5-5.1); SODIUM 140 mmol/L (135-144)
[2018-06-19] MEDS: POLYETHYLENE GLYCOL 17 GM PACKET PO (09:00)
[2018-06-19] MEDS: MULTIVIT/CA CARB/B CMPLX/FA TAB PO (09:12)
[2018-06-19] MEDS: FAMOTIDINE 20 MG INJ IV (09:12)
[2018-06-19] MEDS: DOCUSATE SODIUM 100 MG CAP PO ×2 (09:12→20:07)
[2018-06-19] MEDS: BETHANECHOL 10 MG TAB PO ×2 (09:12→12:20)
[2018-06-19] MEDS: predniSONE 20 MG TAB PO (09:12)
[2018-06-19] MEDS: FERROUS SULFATE (EC) 325 MG TAB PO ×2 (09:12→20:07)
[2018-06-19] MEDS: CLOPIDOGREL 75 MG TAB PO (09:13)
[2018-06-19] MEDS: LINAGLIPTIN 5 MG TABLET PO (09:13)
[2018-06-19] MEDS: ASPIRIN (EC) 81 MG TAB PO (09:13)
[2018-06-19] MEDS: ASCORBIC ACID 500 MG TAB PO (09:13)
[2018-06-19] MEDS: ISOSORBIDE MONONITRATE(SR)30 MG TAB PO (09:13)
[2018-06-19] MEDS: ENOXAPARIN 30 MG/0.3 ML SYG SC (09:14)
[2018-06-19] MEDS: METOPROLOL 25 MG TAB PO ×2 (09:14→20:07)
[2018-06-19] MEDS: NYSTATIN 30 GM POWDER BTL TOP ×2 (09:15→20:10)
[2018-06-19] MEDS: BISACODYL 10 MG SUPP PR (11:58)
[2018-06-19] MEDS: ATORVASTATIN 40 MG TAB PO (20:07)
[2018-06-19] MEDS: TAMSULOSIN (SR) 0.4 MG CAP PO (20:07)
[2018-06-19] MEDS: DOXAZOSIN 2 MG TAB PO (20:08)
[2018-06-19] MEDS: BETHANECHOL 25 MG TAB PO (20:09)
[2018-06-20] MEDS: ZOLPIDEM 5 MG TAB PO (02:07)
[2018-06-20] MEDS: PROMETHAZINE/DM (CUP) PO (02:09)
[2018-06-20] MEDS: PANTOPRAZOLE (EC) 40 MG TAB PO (06:29)
[2018-06-20] MEDS: FAMOTIDINE 20 MG INJ IV (08:14)
[2018-06-20] MEDS: BETHANECHOL 25 MG TAB PO ×3 (08:15→21:17)
[2018-06-20] MEDS: MULTIVIT/CA CARB/B CMPLX/FA TAB PO (08:15)
[2018-06-20] MEDS: METOPROLOL 25 MG TAB PO ×2 (08:15→20:42)
[2018-06-20] MEDS: ASCORBIC ACID 500 MG TAB PO (08:15)
[2018-06-20] MEDS: ASPIRIN (EC) 81 MG TAB PO (08:16)
[2018-06-20] MEDS: DOCUSATE SODIUM 100 MG CAP PO ×2 (08:16→20:41)
[2018-06-20] MEDS: predniSONE 20 MG TAB PO (08:16)
[2018-06-20] MEDS: ISOSORBIDE MONONITRATE(SR)30 MG TAB PO (08:16)
[2018-06-20] MEDS: LINAGLIPTIN 5 MG TABLET PO (08:16)
[2018-06-20] MEDS: CLOPIDOGREL 75 MG TAB PO (08:16)
[2018-06-20] MEDS: FERROUS SULFATE (EC) 325 MG TAB PO ×2 (08:16→20:40)
[2018-06-20] MEDS: ENOXAPARIN 30 MG/0.3 ML SYG SC (08:18)
[2018-06-20] MEDS: INSULIN ASPART [NOVOLOG] 3 ML PEN SC ×4 (08:20→20:47)
[2018-06-20] MEDS: POLYETHYLENE GLYCOL 17 GM PACKET PO (08:23)
[2018-06-20 10:02] LABS: ADD MAN DIFF? NO
[2018-06-20 10:06] LABS: BASOPHILS % 0.2 % (0.0-2.0); EOSINOPHILS # 0.3 10^3/ul (0.0-0.5); EOSINOPHILS % 3.2 % (0.0-7.0); HEMOGLOBIN 9.3 g/dl (14.0-18.0); LYMPHOCYTES # 3.1 10^3/ul (0.8-2.9); LYMPHOCYTES % 33.5 % (15.0-51.0); MEAN CORPUSCULAR HEMOGLOBIN 27.5 pg (29.0-33.0); MEAN CORPUSCULAR VOLUME 88.8 fl (82.0-101.0); MEAN PLATELET VOLUME 11.7 fl (7.4-10.4); MONOCYTE # 0.7 10^3/ul (0.3-0.9); MONOCYTES % 7.8 % (0.0-11.0); NEUTROPHILS % 54.7 % (39.0-77.0); PLATELET COUNT 224 10^3/UL (140-415); RED BLOOD COUNT 3.38 10^6/ul (4.70-6.10); RED CELL DISTRIBUTION WIDTH 16.7 % (11.5-14.5)
[2018-06-20 10:06] LABS: WHITE BLOOD COUNT 9.2 10^3/ul (4.8-10.8)
[2018-06-20 10:32] LABS: ANION GAP 14 (8-16); BLOOD UREA NITROGEN 87 mg/dl (7-20); CALCIUM 8.6 mg/dl (8.4-10.2); CARBON DIOXIDE 16 mmol/L (21-31); CHLORIDE 115 mmol/L (97-110); CREATININE 2.17 mg/dl (0.61-1.24); GLUCOSE 163 mg/dl (70-220); POTASSIUM 4.8 mmol/L (3.5-5.1); SODIUM 140 mmol/L (135-144)
[2018-06-20] MEDS: ERGOCALCIFEROL 50,000 UNIT CAP PO (12:01)
[2018-06-20] MEDS: NYSTATIN 30 GM POWDER BTL TOP ×2 (12:01→21:18)
[2018-06-20] MEDS: BISACODYL 10 MG SUPP PR (12:09)
[2018-06-20] MEDS: DOXAZOSIN 2 MG TAB PO (20:40)
[2018-06-20] MEDS: ATORVASTATIN 40 MG TAB PO (20:40)
[2018-06-20] MEDS: TAMSULOSIN (SR) 0.4 MG CAP PO (20:41)
[2018-06-21] MEDS: PROMETHAZINE/DM (CUP) PO (00:11)
[2018-06-21] MEDS: ZOLPIDEM 5 MG TAB PO ×2 (02:21→23:05)
[2018-06-21] MEDS: PANTOPRAZOLE (EC) 40 MG TAB PO (06:25)
[2018-06-21] MEDS: INSULIN ASPART [NOVOLOG] 3 ML PEN SC ×4 (07:51→20:23)
[2018-06-21 08:25] LABS: INR 1.05; PARTIAL THROMBOPLASTIN TIME 28.9 Sec (25.0-35.0); PROTIME 13.8 Sec (11.9-14.9); PT RATIO 1.1
[2018-06-21] MEDS: FAMOTIDINE 20 MG INJ IV (08:40)
[2018-06-21] MEDS: predniSONE 20 MG TAB PO (08:40)
[2018-06-21] MEDS: ASCORBIC ACID 500 MG TAB PO (08:41)
[2018-06-21] MEDS: DOCUSATE SODIUM 100 MG CAP PO ×2 (08:41→20:16)
[2018-06-21] MEDS: LINAGLIPTIN 5 MG TABLET PO (08:42)
[2018-06-21] MEDS: METOPROLOL 25 MG TAB PO ×2 (08:42→20:17)
[2018-06-21] MEDS: FERROUS SULFATE (EC) 325 MG TAB PO ×2 (08:42→20:17)
[2018-06-21] MEDS: CLOPIDOGREL 75 MG TAB PO (08:42)
[2018-06-21] MEDS: ASPIRIN (EC) 81 MG TAB PO (08:43)
[2018-06-21] MEDS: ISOSORBIDE MONONITRATE(SR)30 MG TAB PO (08:43)
[2018-06-21] MEDS: NYSTATIN 30 GM POWDER BTL TOP ×2 (08:43→20:19)
[2018-06-21] MEDS: BETHANECHOL 25 MG TAB PO ×3 (08:43→20:18)
[2018-06-21] MEDS: MULTIVIT/CA CARB/B CMPLX/FA TAB PO (08:43)
[2018-06-21] MEDS: ENOXAPARIN 30 MG/0.3 ML SYG SC (08:44)
[2018-06-21] MEDS: POLYETHYLENE GLYCOL 17 GM PACKET PO (08:44)
[2018-06-21] MEDS: BISACODYL 10 MG SUPP PR (11:55)
[2018-06-21] MEDS: ACETAMINOPHEN 325 MG TAB PO (12:29)
[2018-06-21] MEDS: LIDOCAINE 1% (MPF) 5 ML VIAL (14:27)
[2018-06-21] MEDS: HYDROCODONE/APAP (5/325) TAB PO ×2 (16:19→23:05)
[2018-06-21] MEDS: morphine LIQ (10 MG/5 ML) CUP PO (19:52)
[2018-06-21] MEDS: TAMSULOSIN (SR) 0.4 MG CAP PO (20:16)
[2018-06-21] MEDS: ATORVASTATIN 40 MG TAB PO (20:17)
[2018-06-21] MEDS: DOXAZOSIN 2 MG TAB PO (20:18)
[2018-06-22] MEDS: MIDODRINE 5 MG TAB PO (04:43)
[2018-06-22] MEDS: ALBUMIN HUMAN 25% 100 ML IV (04:54)
[2018-06-22 04:57] LABS: AADO2 Arterial 480.3 mmHg (7.0-24.0); Allen Test ACCEPTAB; Arterial Base Excess -16.2 mmol/L (-3.0-3); Arterial Blood Gas Oxygen Sat 98.6 mmHG (95.0-100.0); Arterial COHb 0.3 % (0.0-3.0); Arterial Fraction of Oxyhgb 97.9 % (93.0-99.0); Arterial HCO3 13.8 mmol/L (22.0-26.0); Arterial MetHb 0.4 % (0.0-1.5); Arterial Total Hemglobin 9.2 g/dl (12.0-18.0); Arterial pCO2 52.8 mmhg (35-45); MODE MASK - NRB; Site Left Radial
[2018-06-22] MEDS: FUROSEMIDE 40 MG INJ IV (05:00)
[2018-06-22] MEDS ORDERED: NORepinephrine 8MG/250 ML (PMX 250 ML (05:15)
[2018-06-22] MEDS: PANTOPRAZOLE (EC) 40 MG TAB PO (06:00)
[2018-06-22] MEDS ORDERED: DOPamine-D5W 1.6 MG/ML 250 ML (06:18)
[2018-06-22 06:44] LABS: AADO2 Arterial 468.8 mmHg (7.0-24.0); Arterial Base Excess -14.8 mmol/L (-3.0-3); Arterial Blood Gas Oxygen Sat 99.1 mmHG (95.0-100.0); Arterial COHb 0.3 % (0.0-3.0); Arterial Fraction of Oxyhgb 98.3 % (93.0-99.0); Arterial HCO3 13.5 mmol/L (22.0-26.0); Arterial MetHb 0.5 % (0.0-1.5); Arterial Total Hemglobin 8.6 g/dl (12.0-18.0); Arterial pCO2 41.7 mmhg (35-45); Blood Gas Low PEEP Setting 0 cmH2O; MODE VENT - AC; Site LB
[2018-06-22] MEDS: NORepinephrine 8MG/250 ML (PMX 250 ML IV (06:53)
[2018-06-22] MEDS: DOPamine-D5W 1.6 MG/ML 250 ML IV (06:54)
[2018-06-22] MEDS ORDERED: SUCCINYLCHOLINE CHLORIDE 100 MG/5 ML SYG IV (07:00)
[2018-06-22] MEDS ORDERED: MIDAZOLAM (DRIP) 50 mg/50 mL 50 ML IV (08:00)
[2018-06-22] MEDS ORDERED: PHENYLephrine 40 MG in DEXTROSE 5% 496 ML IV (08:00)
[2018-06-22] MEDS ORDERED: PHENYLephrine 20MG IN 250 ML 250 ML (08:06)
[2018-06-22] MEDS ORDERED: LORAZEPAM 2 MG INJ IV (08:30)
[2018-06-22] MEDS ORDERED: CEFEPIME 1GM/50 ML (PMX) 50 ML IVPB (09:00)
[2018-06-22] MEDS ORDERED: LINEZOLID 600 MG/D5W (PMX) 300 ML IVPB (09:00)
[2018-06-22] MEDS ORDERED: LORAZEPAM (MDV) 100 MG in DEXTROSE 5% 50 ML IV (09:00)
[2018-06-22] MEDS ORDERED: FENTAnyl (DRIP) 1000 mcg/100mL 100 ML IV ×2 (09:00)
[2018-06-22] MEDS: LIDOCAINE 1% (MPF) 5 ML VIAL SC (09:12)
[2018-06-22] MEDS: INSULIN ASPART [NOVOLOG] 3 ML PEN SC (09:13)
[2018-06-22] MEDS: morphine (DRIP) 100 MG/100 ML 100 ML IV (10:09)
== END 2018-06-22 10:55 | disposition expired ==
LOC: ICU 06-22 05:01 → E/R 22:24 → MS4 06-02 03:19
PROC: 0W9B3ZZ Drainage of Left Pleural Cavity, Percutaneous Approach (ICD-10-PCS; 2018-06-21)
PROC: 0BH17EZ Insertion of Endotracheal Airway into Trachea, Via Natural or Artificial Opening (ICD-10-PCS; principal; 2018-06-22)
PROC: 5A1935Z Respiratory Ventilation, Less than 24 Consecutive Hours (ICD-10-PCS; 2018-06-22)
DX: I21.4 Non-ST elevation (NSTEMI) myocardial infarction (principal); J18.9 Pneumonia, unspecified organism; I50.21 Acute systolic (congestive) heart failure; J96.90 Respiratory failure, unspecified, unspecified whether with hypoxia or hypercapnia; A41.9 Sepsis, unspecified organism; R65.20 Severe sepsis without septic shock; N17.9 Acute kidney failure, unspecified; N39.0 Urinary tract infection, site not specified; I13.0 Hypertensive heart and chronic kidney disease with heart failure and stage 1 through stage 4 chronic kidney disease, or unspecified chronic kidney disease; I69.954 Hemiplegia and hemiparesis following unspecified cerebrovascular disease affecting left non-dominant side; R57.9 Shock, unspecified; B48.8 Other specified mycoses; K52.1 Toxic gastroenteritis and colitis; J90 Pleural effusion, not elsewhere classified; J44.0 Chronic obstructive pulmonary disease with (acute) lower respiratory infection; N18.3 Chronic kidney disease, stage 3 (moderate); E87.5 Hyperkalemia; E78.5 Hyperlipidemia, unspecified; K21.9 Gastro-esophageal reflux disease without esophagitis; I25.10 Atherosclerotic heart disease of native coronary artery without angina pectoris; E11.22 Type 2 diabetes mellitus with diabetic chronic kidney disease; E11.21 Type 2 diabetes mellitus with diabetic nephropathy; Z87.891 Personal history of nicotine dependence; E79.0 Hyperuricemia without signs of inflammatory arthritis and tophaceous disease; N40.0 Benign prostatic hyperplasia without lower urinary tract symptoms; Z51.5 Encounter for palliative care; T50.3X5A Adverse effect of electrolytic, caloric and water-balance agents, initial encounter; Y92.239 Unspecified place in hospital as the place of occurrence of the external cause; R00.1 Bradycardia, unspecified
CPT/HCPCS: 31500; 32555; 36415; 36600; 71045; 71250; 73030; 76775; 80048; 80053; 80061; 81001; 81003; 82550; 82553; 82570; 82803; 82947; 82962; 83036; 83735; 83880; 84100; 84300; 84439; 84443; 84484; 84560; 85025; 85610; 85730; 87086; 89190; 93005; 93306; 94002; 94770; 96374; 99285-25